=== PATIENT | male | born 1985 | race Two or more races ===

== ENCOUNTER 2025-08-30 10:10 | Day surgery (SDC) | payer OTHER, SELFPAY ==
[2025-08-29 06:53] VITALS: BMI 30.7
[2025-08-29 08:28] LABS: Basophils # (Auto) 0.0 Thou/mm3 (0.0-0.2); Basophils % (Auto) 1 % (0-2.5); Eosinophils # (Auto) 0.2 Thou/mm3 (0.0-0.5); Eosinophils % (Auto) 3 % (0-10); Hematocrit 48.4 % (41.0-53.0); Hemoglobin 16.1 g/dL (13.5-16.0); Immature Granulocytes Auto 0.02 Thou/mm3 (0.00-0.00); Lymphocytes # (Auto) 1.9 Thou/mm3 (1.0-4.8); Lymphocytes % (Auto) 37 % (10-50); Mean Corpuscular HGB Conc 33.3 g/dl (31.0-37.0); Mean Corpuscular Hemoglobin 29.2 pg (25.0-35.0); Mean Corpuscular Volume 88 fL (80-100); Monocytes # (Auto) 0.5 Thou/mm3 (0.0-0.8); Monocytes % (Auto) 10 % (0-12); Neutrophils # (Auto) 2.5 Thou/mm3 (1.8-7.7); Neutrophils % (Auto) 49 % (37-80); Nucleated Red Blood Cell # 0.00 Thou/mm3 (0.00-0.00); Nucleated Red Blood Cell % 0 /100 WBC (0); Platelet Count 240 Thou/mm3 (140-440); RDW Standard Deviation 40.8 fL (35.1-43.9); Red Blood Count 5.52 Miln/mm3 (4.50-5.90); White Blood Count 5.1 Thou/mm3 (3.8-10.6)
[2025-08-29 08:36] LABS: INR 1.0 (0.9-1.3); Partial Thromboplastin Time 26.8 Seconds (22.0-36.0); Prothrombin Time 11.1 Seconds (9.0-12.2)
[2025-08-29 08:40] LABS: Alanine Aminotransferase 60 U/L (10-49); Albumin, Serum 4.9 gm/dL (3.5-5.0); Albumin/Globulin Ratio 2.0 (1.2-2.2); Alkaline Phosphatase 57 U/L (46-116); Anion Gap 9 (7-16); Aspartate Amino Transferase 32 U/L (0-34); BUN/Creatinine Ratio 14 Ratio (12-20); Bilirubin,Total 0.6 mg/dL (0.3-1.2); Blood Urea Nitrogen 14 mg/dL (9-23); Calcium 9.3 mg/dL (8.3-10.6); Calcium (Corrected) 9.3 mg/dL (8.5-10.1); Carbon Dioxide 30.1 mMol/L (20.0-31.0); Chloride 104 mMol/L (98-107); Creatinine (Component) 1.0 mg/dL (0.6-1.3); Estimated Creatinine Clearance 119.5 mL/min (>60); Globulin 2.5 gm/dL (2.3-3.5); Glucose 108 mg/dL (74-106); Osmolality,Calculated 286 (275-295); Potassium 3.8 mMol/L (3.4-5.1); Sodium 143 mMol/L (136-145); Total Protein 7.4 gm/dL (5.7-8.2); eGFR > 60 See Note
--- NOTE | 2025-08-29 14:39 | SUR.PREOP ---
Pt notified to come in at 1030 tomorrow for surgery.
[2025-08-30 11:02] VITALS: BP 137/78; PULSE 75; RESP 16; TEMP 36.7; O2SAT 96; BMI 30.3
[2025-08-30 13:00] VITALS: BP 106/69; PULSE 91; RESP 23; TEMP 36.7; O2SAT 99
[2025-08-30 13:05] VITALS: BP 131/78; PULSE 85; RESP 12; O2SAT 100
--- NOTE | 2025-08-30 13:07 | PD.SUROPNT ---
Date of Procedure 08/30/25 Pre Op Diagnosis Symptomatic umbilical hernia Post Op Diagnosis Same Procedure Repair of the umbilical hernia with primary closure Findings Patient was found to have umbilical hernia containing preperitoneal fat and the defect measured about 1.5 cm in the linear format Procedure Description After the patient was brought to the operating room endotracheal anesthesia was given. Abdomen was prepped with ChloraPrep solution and draped in a sterile manner. Timeout was performed. Then a curved incision was made below the umbilicus after injecting half percent Marcaine plain. Using Yesica retractors the skin was retracted and the sac was identified. I opened up the sac and found out that the patient had preperitoneal fat and some omentum. I excised the sac all the way down to the fascia and the sac barely admitted 1 finger. Fascial edges were therefore primarily closed with interrupted 4 sutures of 2-0 Prolene with the knots inside. Then the back of the umbilical skin was attached to the fascia the subcutaneous tissue was closed with 3-0 chromic. Skin was closed with 4-0 Monocryl and dressing was applied with Adaptic and 4 x 4 with compression. Patient tolerated the procedure well Pathology / specimen None IVF Infused 800 Estimated Blood Loss 20 Surgeon Adwoa Rodriguez MD Surgical Staff Operation Date: 08/30/25 12:30 Case Staff Anesthesiologist: Lino Garcia RN First Assistant: Keturah Wadsworth
[2025-08-30 13:10] VITALS: BP 136/78; PULSE 83; RESP 14; O2SAT 97
--- NOTE | 2025-08-30 13:18 | SUR.PHASEI ---
1300: Pt received in [facility] via gurney. Report from Heide CARMONA and Dr. Wong. Oral airway in place. Resp even, unlabored. VS stable. Dressing to mid abdomen dry, clean, intact. 1307: Oral airway dc'd. Resp even, unlabored.
[2025-08-30 13:25] VITALS: BP 143/88; PULSE 74; RESP 17; O2SAT 98
--- NOTE | 2025-08-30 15:42 | SUR.PHASEI ---
1325: Pt resting with no complaints voiced. Resp even, unlabored. VS stable. Dressing to abdomen dry, clean, intact. Denies pain.
--- NOTE | 2025-08-30 15:51 | SUR.PHASEII ---
1345: Pt more awake, alert. VS stable. Dressing to mid abdomen remains dry, clean, intact. Denies pain. Pt sitting up tolerating po fluids with no difficulty swallowing and no n/v. 1410: Pt fully awake, oriented x3. Pt has met discharge criteria. Pt dressed and assisted to restroom. Ambulation steady. Pt and stated understanding of discharge instructions. Pt discharged from [facility] in stable condition.
== END 2025-08-30 14:10 | disposition home or self-care (01) ==
PROVIDERS: PCP Nurse Practitioner; Referring Provider Surgery; Visit Provider Surgery
PROC: (CPT 49591; principal; 2025-08-30 12:15)
DX: K42.9 Umbilical hernia without obstruction or gangrene (principal); M62.08 Separation of muscle (nontraumatic), other site
CPT/HCPCS: 49591; 36415; 80053; 85025; 85610; 85730; A4649; J0131; J1100; J1885; J2250; J2405; J2704; J3010; J3490